=== PATIENT | male | born 1975 | race Caucasian/White ===

== ENCOUNTER 2020-12-29 07:13 | Emergency (ER) | payer OTHER ==
[~2020-12-29] VITALS: Ht 200.7 cm; Wt 93.0 kg
[2020-12-29 07:15] VITALS: BP_SYST 126
--- NOTE | 2020-12-29 07:17 | NUR ---
BROUGHT IN BY [facility] AND PLACED IN BED #1, TRIAGED. REPORT GIVEN TO UMBERTO
--- NOTE | 2020-12-29 07:20 | NUR ---
PT BIBA FROM HOME C/O L FLANK PAIN FOR 3 DAYS. PT STATES THAT HE HAD PAIN YESTERDAY BUT IT WENT AWAY AFTER ABOUT 15 MIN. DENIES HX OF KIDNEY STONES. PT PRESENTS MOANING IN PAIN, COOL AND DIAPHORETIC. V/S STABLE AAOX4
[2020-12-29] MEDS ORDERED: KETOROLAC TROMETHAMINE 60 MG/2 ML VIAL IM ONE ×2 (07:30→07:44)
--- NOTE | 2020-12-29 07:50 | NUR ---
Patient transported to radiology via GURNEY, accompanied by STAFF.
[2020-12-29 08:14] LABS: BASOPHILS % (AUTO) 0.4 % (0.0-2.0); EOSINOPHILS % (AUTO) 0.5 % (0.0-4.0); HEMATOCRIT 44.3 % (36-54); HEMOGLOBIN 15.8 g/dL (14.0-18.0); LYMPHOCYTES # (AUTO) 1.6 K/uL (1.0-5.5); LYMPHOCYTES % (AUTO) 18.7 % (20.5-51.5); MEAN CORPUSCULAR HEMOGLOBIN 31 pg (27-31); MEAN CORPUSCULAR HGB CONC 36 % (32-36); MEAN CORPUSCULAR VOLUME 86 fL (79.0-98.0); MONOCYTES # (AUTO) 0.6 K/uL (0.0-1.0); MONOCYTES % (AUTO) 7.5 % (1.7-9.3); NEUTROPHILS # (AUTO) 6.1 K/uL (1.8-7.7); NEUTROPHILS % (AUTO) 72.9 % (40.0-70.0); PLATELET COUNT (AUTO) 199 K/uL (130-430); RED BLOOD CELL COUNT(AUTO) 5.16 MIL/uL (4.2-6.2); RED CELL DISTRIBUTION WIDTH 12.8 % (9.0-15.0); WHITE BLOOD COUNT (AUTO) 8.4 K/uL (4.8-10.8)
[2020-12-29 08:30] LABS: PROTHROMBIN TIME 10.5 SECS (9.5-12.5)
[2020-12-29] MEDS ORDERED: ONDANSETRON HCL 4 MG/2 ML VIAL IVP ONE (08:30)
[2020-12-29] MEDS ORDERED: MORPHINE 2 MG/ML INJ. SYRINGE IVP ONE ×2 (08:30→09:45)
[2020-12-29 08:35] LABS: CALCIUM 9.6 mg/dL (8.4-11.0); CREATININE 1.53 mg/dL (0.55-1.30); POTASSIUM 3.5 mmol/L (3.5-5.1)
[2020-12-29 08:51] LABS: ALBUMIN 4.1 g/dL (3.4-4.8); TOTAL BILIRUBIN 0.6 mg/dL (0.0-1.0)
--- NOTE | 2020-12-29 09:00 | NUR ---
PT RESTING IN BED, NO DISTRESS, V/S STABLE
[2020-12-29] MEDS ORDERED: HYDR-3917 PO (09:41)
[2020-12-29] MEDS ORDERED: IBUP-1971 PO (09:41)
[2020-12-29 09:57] LABS: BILIRUBIN,URINE NEGATIVE (NEGATIVE); BLOOD, URINE 3+ (NEGATIVE); CLARITY/URINE CLEAR (CLEAR); COLOR,URINE YELLOW (YELLOW); GLUCOSE,URINE NEGATIVE (NEGATIVE); KETONES,URINE 1+ (NEGATIVE); LEUKOCYTE ESTERASE ,URINE NEGATIVE (NEGATIVE); NITRITE, URINE NEGATIVE (NEGATIVE); PH,URINE 8.5 (5.0-8.0); PROTEIN URINE NEGATIVE (NEGATIVE); UROBILINOGEN,URINE 0.2 (0.2-1.0)
[2020-12-29 10:11] VITALS: BP_SYST 126
--- NOTE | 2020-12-29 10:13 | NUR ---
Patient given written and verbal discharge instructions and verbalizes understanding. ER MD discussed with patient the results and treatment provided. Patient in stable condition. ID arm band removed. IV catheter removed intact and dressing applied, no active bleeding. Rx of NORCO AND IBUPROFEN given. Patient educated on pain management and to follow up with PMD. Pain Scale 0/10. Opportunity for questions provided and answered. Medication side effect fact sheet provided.
[2020-12-29 11:29] LABS: BACTERIA,URINE None Seen /HPF (None Seen); RBC,URINE 20-50 /HPF (0-3); WBC,URINE 0-3 /HPF (0-3)
== END 2020-12-29 10:11 | disposition home or self-care (01) ==
LOC: SED 07:13
DX: N23 Unspecified renal colic (principal)
CPT/HCPCS: 36415; 74176; 76376; 80053; 81000; 82150; 83605; 83690; 85025; 85610; 85730; 96372; 96374; 96375; 96376; 99285; J1885; J2270; J2405